=== PATIENT | male | born 1995 | race Caucasian/White ===

== ENCOUNTER 2024-01-12 15:28 | Emergency (ER) | payer OTHER ==
[2024-01-12 16:56] VITALS: TEMP 98.2
--- NOTE | 2024-01-12 17:54 | ED ---
Fall HPI - General Source: patient, RN notes reviewed Mode of arrival: EMS <Rosie Byrd - Last Filed: 01/12/24 17:54> <Bao Lujan - Last Filed: 01/12/24 21:19> - General Chief Complaint: Fall Time Seen by Provider: 01/12/24 15:40 - History of Present Illness Initial Comments: This is a 28-year-old male presents the emergency department via EMS from [facility] chief complaint of a fall. Patient states that he was in the waiting room of [facility] pending to be admitted when he fell asleep at the chair something and falling onto the ground striking his head. Patient states that EMS was called for evaluation of a head injury. Currently he is denying any headaches, pain, dizziness, lightheadedness, change in vision. States that his last use of fentanyl was at 0200. At that he is on Suboxone. No other acute complaints at this time. (Rosie Byrd) - Related Data Allergies Allergy/AdvReac Type Severity Reaction Status Date / Time No Known Allergies Allergy Verified 01/12/24 16:56 Review of Systems ROS Other: All systems not noted in ROS Statement are negative. <Rosie Byrd - Last Filed: 01/12/24 17:54> ROS Other: All systems not noted in ROS Statement are negative. <Bao Lujan - Last Filed: 01/12/24 21:19> ROS Statement: Those systems with pertinent positive or pertinent negative responses have been documented in the HPI. Past Medical History Past Medical History: No Reported History History of Any Multi-Drug Resistant Organisms: None Reported Past Surgical History: No Surgical Hx Reported Additional Past Surgical History / Comment(s): spinal fusions, plates in collar bone, humerus plate, forearm in left arm. Past Psychological History: ADD/ADHD, Depression Smoking Status: Current every day smoker Past Alcohol Use History: None Reported Past Drug Use History: Cocaine, Heroin, IV Drug Use, Marijuana, Methamphetamine, Opiates, Prescription Drug Abuse <Rosie Byrd - Last Filed: 01/12/24 17:54> General Exam Limitations: no limitations <Rosie Byrd - Last Filed: 01/12/24 17:54> Course Vital Signs 01/12/24 16:50 Temperature 98.2 F Pulse Rate 88 Respiratory 16 Rate Blood Pressure 120/82 O2 Sat by Pulse 98 Oximetry Medical Decision Making <Rosie Byrd - Last Filed: 01/12/24 17:54> - Lab Data Result diagrams: 01/12/24 19:25 01/12/24 19:25 <LeBao - Last Filed: 01/12/24 21:19> - Medical Decision Making Was pt. sent in by a medical professional or institution (, ANDREW, ACETALDEHYDE CONVERTER OPERATOR, urgent care, hospital, or retirement...) When possible be specific @ -[No] Did you speak to anyone other than the patient for history (EMS, parent, family, police, friend...)? What history was obtained from this source @ -[No] Did you review nursing and triage notes (agree or disagree)? Why? @ -[I reviewed and agree with nursing and triage notes] Were old charts reviewed (outside hosp., previous admission, EMS record, old EKG, old radiological studies, urgent care reports/EKG's, retirement records)? Report findings @ -[No old charts were reviewed] Differential Diagnosis (chest pain, altered mental status, abdominal pain women, abdominal pain men, vaginal bleeding, weakness, fever, dyspnea, syncope, headache, dizziness, GI bleed, back pain, seizure, CVA, palpatations, mental health, musculoskeletal)? @ -[not applicable] EKG interpreted by me (3pts min.). @ -[As above] X-rays interpreted by me (1pt min.). @ -[None done] CT interpreted by me (1pt min.). @ -[None done] U/S interpreted by me (1pt. min.). @ -[None done] What testing was considered but not performed or refused? (CT, X-rays, U/S, labs)? Why? @ -[None] What meds were considered but not given or refused? Why? @ -[None] Did you discuss the management of the patient with other professionals (professionals i.e. ANDREW Watson, ACETALDEHYDE CONVERTER OPERATOR, lab, RT, psych nurse, geriatric social worker, electronics engineering technologist, teacher, customer service security officer, director of casework department)? Give summary @ -[No] Was smoking cessation discussed for >3mins.? @ -[No] Was critical care preformed (if so, how long)? @ -[No] Were there social determinants of health that impacted care today? How? (Homelessness, low income, unemployed, alcoholism, drug addiction, transportation, low edu. Level, literacy, decrease access to med. care, penitentiary, rehab)? @ -[No] Was there de-escalation of care discussed even if they declined (Discuss DNR or withdrawal of care, Hospice)? DNR status @ -[No] What co-morbidities impacted this encounter? (DM, HTN, Smoking, COPD, CAD, Cancer, CVA, ARF, Chemo, Hep., AIDS, mental health diagnosis, sleep apnea, morbid obesity)? @ -[None] Was patient admitted / discharged? Hospital course, mention meds given and route, prescriptions, significant lab abnormalities, going to OR and other pertinent info. @ -[hospital course] Undiagnosed new problem with uncertain prognosis? @ -[No] Drug Therapy requiring intensive monitoring for toxicity (Heparin, Nitro, Insulin, Cardizem)? @ -[No] Were any procedures done? @ -[No] Diagnosis/symptom? @ -[default] Acute, or Chronic, or Acute on Chronic? @ -[default] Uncomplicated (without systemic symptoms) or Complicated (systemic symptoms)? @ -[default] Side effects of treatment? @ -[No] Exacerbation, Progression, or Severe Exacerbation? @ -[No] Poses a threat to life or bodily function? How? (Chest pain, [place], [place], pneumonia, PE, COPD, DKA, ARF, appy, cholecystitis, CVA, Diverticulitis, Homicidal, Suicidal, threat to staff... and all critical care pts) @ -[No] (Rosie Byrd) 28-year-old male signed out to me pending laboratory studies. Patient states that he fell asleep while in the waiting room at [facility] and staff became worried as he thought that he hit his head. Patient denies this. He has no current complaints. Denies headache. Patient not on blood thinners. Denies any other injury at this time. On exam, no midline spinal tenderness to palpation. Head exam atraumatic normocephalic with no evidence of head injury. Full active range of motion of bilateral upper lower extremities. Radial pulses, DP/PT pulses intact bilaterally. Ambulates without difficulty. Laboratory studies reviewed and are largely unremarkable. Discharged in able condition. Discussed return precautions with patient who verbalized agreement. (Bao Lujan) - Lab Data Lab Results 01/12/24 01/12/24 01/12/24 Range/Units 19:25 19:25 19:25 WBC 6.5 (3.8-10.6) k/uL RBC 4.18 L (4.30-5.90) m/uL Hgb 12.8 L (13.0-17.5) gm/dL Hct 37.8 L (39.0-53.0) % MCV 90.6 (80.0-100.0) fL MCH 30.7 (25.0-35.0) pg MCHC 33.8 (31.0-37.0) g/dL RDW 13.5 (11.5-15.5) % Plt Count 183 (150-450) k/uL MPV 7.2 Neutrophils % (Manual) 48 % Lymphocytes % (Manual) 37 % Monocytes % (Manual) 12 % Eosinophils % (Manual) 3 % Neutrophils # (Manual) 3.12 (1.3-7.7) k/uL Lymphocytes # (Manual) 2.41 (1.0-4.8) k/uL Monocytes # (Manual) 0.78 (0-1.0) k/uL Eosinophils # (Manual) 0.20 (0-0.7) k/uL Nucleated RBCs 0 (0-0) /100 WBC Manual Slide Review Performed Sodium 137 (137-145) mmol/L Potassium 4.0 (3.5-5.1) mmol/L Chloride 105 (98-107) mmol/L Carbon Dioxide 29 (22-30) mmol/L Anion Gap 3 mmol/L BUN 13 (9-20) mg/dL Creatinine 0.79 (0.66-1.25) mg/dL Est GFR (CKD-EPI)AfAm >90 (>60 ml/min/1.73 sqM) Est GFR (CKD-EPI)NonAf >90 (>60 ml/min/1.73 sqM) Glucose 80 (74-99) mg/dL Calcium 8.9 (8.4-10.2) mg/dL Total Bilirubin 0.5 (0.2-1.3) mg/dL AST 52 (17-59) U/L ALT 24 (4-49) U/L Alkaline Phosphatase 64 (38-126) U/L Total Protein 6.9 (6.3-8.2) g/dL Albumin 4.3 (3.5-5.0) g/dL Urine Opiates Screen Detected H (NotDetected) Ur Oxycodone Screen Not Detected (NotDetected) Urine Methadone Screen Not Detected (NotDetected) Ur Barbiturates Screen Not Detected (NotDetected) U Tricyclic Antidepress Not Detected (NotDetected) Ur Phencyclidine Scrn Not Detected (NotDetected) Ur Amphetamines Screen Not Detected (NotDetected) U Methamphetamines Scrn Not Detected (NotDetected) U Benzodiazepines Scrn Not Detected (NotDetected) Urine Cocaine Screen Detected H (NotDetected) U Marijuana (THC) Screen Detected H (NotDetected) Disposition Is patient prescribed a controlled substance at d/c from ED?: No Time of Disposition: 17:53 <Rosie Byrd - Last Filed: 01/12/24 17:54> Is patient prescribed a controlled substance at d/c from ED?: No Time of Disposition: 21:19 <Bao Lujan - Last Filed: 01/12/24 21:19> Clinical Impression: Fall, Concern of healthcare provider about possible non-accidental traumatic injury Disposition: HOME SELF-CARE Condition: Poor Instructions (If sedation given, give patient instructions): Fall Prevention (ED) Additional Instructions: Return to the emergency department if symptoms worsen or do not improve. Referrals: Nonstaff,Physician [Primary Care Provider] - 1-2 days
[2024-01-12] MEDS: SODIUM CHLORIDE 0.9% 1,000 ML IV STA (19:37)
[2024-01-12 19:56] LABS: Amphetamine Screen,Urine Not Detected (NotDetected); Barbiturate Screen,Urine Not Detected (NotDetected); Benzodiazepines Screen,Urine Not Detected (NotDetected); Cocaine Screen,Urine Detected (NotDetected); Methadone Screen, Urine Not Detected (NotDetected); Opiate Screen,Urine Detected (NotDetected); Oxycodone Screen, Urine Not Detected (NotDetected); Phencyclidine Screen,Urine Not Detected (NotDetected); Tricyclic Antidepressant,Urine Not Detected (NotDetected); Urn Cannabinoid Scrn Detected (NotDetected)
[2024-01-12 20:08] LABS: ALT 24 U/L (4-49); AST 52 U/L (17-59); African American GFR (CKD) >90 (>60 ml/min/1.73 sqM); Albumin 4.3 g/dL (3.5-5.0); Alkaline Phosphatase 64 U/L (38-126); Anion Gap 3 mmol/L; Blood Urea Nitrogen 13 mg/dL (9-20); Calcium 8.9 mg/dL (8.4-10.2); Carbon Dioxide 29 mmol/L (22-30); Chloride 105 mmol/L (98-107); Glucose 80 mg/dL (74-99); Non-African American GFR(CKD) >90 (>60 ml/min/1.73 sqM); Sodium 137 mmol/L (137-145); Total Bilirubin 0.5 mg/dL (0.2-1.3); Total Protein 6.9 g/dL (6.3-8.2)
[2024-01-12 20:15] LABS: HCT 37.8 % (39.0-53.0); HGB 12.8 gm/dL (13.0-17.5); MCH 30.7 pg (25.0-35.0); MCHC 33.8 g/dL (31.0-37.0); MCV 90.6 fL (80.0-100.0); Mean Platelet Volume 7.2; Platelet Count 183 k/uL (150-450); RBC 4.18 m/uL (4.30-5.90); RDW 13.5 % (11.5-15.5); WBC 6.5 k/uL (3.8-10.6)
[2024-01-12 20:44] LABS: Lymphocytes # (M) 2.41 k/uL (1.0-4.8); Monocytes # (M) 0.78 k/uL (0-1.0); Neutrophils # (M) 3.12 k/uL (1.3-7.7); Neutrophils % (M) 48 %; Nucleated Red Blood Cells 0 /100 WBC (0-0); Total Cells Counted 100
[2024-01-12 21:59] VITALS: BP 113/58; PULSE 58; RESP 18
== END 2024-01-12 21:57 | disposition home or self-care (01) ==
LOC: EC 15:28
DX: S09.90XA Unspecified injury of head, initial encounter (principal); F17.200 Nicotine dependence, unspecified, uncomplicated; W18.30XA Fall on same level, unspecified, initial encounter
CPT/HCPCS: 36415; 80053; 80306; 85025; 93005; 96360; 99283

== ENCOUNTER 2024-01-19 11:23 | Emergency (ER) | payer OTHER ==
[2024-01-19 11:30] VITALS: TEMP 98.3
--- NOTE | 2024-01-19 11:43 | ED ---
General Adult HPI - General Chief complaint: Abdominal Pain Stated complaint: Abd Pain Time Seen by Provider: 01/19/24 11:24 Source: patient, EMS, RN notes reviewed Mode of arrival: EMS Limitations: no limitations - History of Present Illness Initial comments: Patient is a 28-year-old male present to the emergency department with concerns for gallbladder problems. Patient does have history of this previously and has had previous ultrasound. Patient states his symptoms have been bothering him for the past 3 days. Patient currently is at [facility] for detox from fentanyl use. Patient admits to injecting. Patient has abdominal discomfort, mostly right upper abdomen with associated nausea and vomiting. No radiation of pain. No fever. - Related Data Home Medications Medication Instructions Recorded Confirmed Acetaminophen Tab [Tylenol] 650 mg PO Q4H 01/19/24 01/19/24 Buprenorphine/Naloxone 8Mg/2Mg 1 film SL BID 01/19/24 01/19/24 [Suboxone 8-2Mg Film] Chlorpheniramine Maleate 4 mg PO Q4H PRN 01/19/24 01/19/24 [Chlor-Trimeton] Dextromethorphan HBr/Bupropion 1 tab PO DAILY 01/19/24 01/19/24 [Auvelity ER 45-105 mg Tablet] Escitalopram [Lexapro] 20 mg PO DAILY 01/19/24 01/19/24 Hyoscyamine Sulfate [Levsin] 0.125 mg PO QID PRN 01/19/24 01/19/24 Ibuprofen [Motrin Ib] 600 mg PO Q6H PRN 01/19/24 01/19/24 Loperamide HCl [Imodium A-D] 4 mg PO QID PRN 01/19/24 01/19/24 Mag Hydrox/Aluminum Hyd/Simeth 30 ml PO Q4H PRN 01/19/24 01/19/24 [Mylanta Maximum Strength Liq] Mirtazapine [Remeron] 15 mg PO HS 01/19/24 01/19/24 Nicotine 14Mg/24Hr Patch [Habitrol 1 patch TRANSDERM DAILY 01/19/24 01/19/24 14Mg/24Hr Patch] OLANZapine [ZyPREXA] 5 mg PO HS 01/19/24 01/19/24 Prazosin [Minipress] 1 mg PO HS 01/19/24 01/19/24 Zofran 2ml (4mg) 4 mg IM Q6H PRN 01/19/24 01/19/24 ondansetron HCL [Ondansetron HCl] 8 mg PO Q6H PRN 01/19/24 01/19/24 Allergies Allergy/AdvReac Type Severity Reaction Status Date / Time No Known Allergies Allergy Verified 01/19/24 11:29 Review of Systems ROS Statement: Those systems with pertinent positive or pertinent negative responses have been documented in the HPI. ROS Other: All systems not noted in ROS Statement are negative. Constitutional: Denies: fever, chills Eyes: Denies: eye pain ENT: Denies: ear pain Respiratory: Denies: cough Cardiovascular: Denies: chest pain Endocrine: Denies: fatigue Gastrointestinal: Reports: as per HPI, abdominal pain, nausea, vomiting, diarrhea (Patient did have an episode of diarrhea) Past Medical History Past Medical History: No Reported History History of Any Multi-Drug Resistant Organisms: None Reported Past Surgical History: No Surgical Hx Reported Additional Past Surgical History / Comment(s): spinal fusions, plates in collar bone, humerus plate, forearm in left arm. Past Psychological History: ADD/ADHD, Depression Smoking Status: Current every day smoker Past Alcohol Use History: None Reported Past Drug Use History: Cocaine, Heroin, IV Drug Use, Marijuana, Methamphetamine, Opiates, Prescription Drug Abuse General Exam Limitations: no limitations General appearance: alert, in no apparent distress Head exam: Present: normocephalic Eye exam: Present: normal appearance Neck exam: Present: normal inspection Respiratory exam: Present: normal lung sounds bilaterally Cardiovascular Exam: Present: regular rate, normal rhythm GI/Abdominal exam: Present: soft, tenderness (Mild diffuse tenderness, more so right upper quadrant where it is moderate), normal bowel sounds. Absent: distended, guarding, rebound, rigid, pulsatile mass Extremities exam: Present: normal inspection Neurological exam: Present: alert Psychiatric exam: Present: normal affect, normal mood Skin exam: Present: normal color Course Vital Signs 01/19/24 01/19/24 11:26 14:46 Temperature 98.3 F Pulse Rate 56 L 67 Respiratory 18 18 Rate Blood Pressure 134/80 125/83 O2 Sat by Pulse 100 97 Oximetry Medical Decision Making - Medical Decision Making Was pt. sent in by a medical professional or institution (, PA, LOOM BLOWER, urgent care, hospital, or skilled nursing...) When possible be specific @ -Patient was sent in from [facility] Did you speak to anyone other than the patient for history (EMS, parent, family, police, friend...)? What history was obtained from this source @ -No Did you review nursing and triage notes (agree or disagree)? Why? @ -I reviewed and agree with nursing and triage notes Were old charts reviewed (outside hosp., previous admission, EMS record, old EKG, old radiological studies, urgent care reports/EKG's, skilled nursing records)? Report findings @ -No old charts were reviewed Differential Diagnosis (chest pain, altered mental status, abdominal pain women, abdominal pain men, vaginal bleeding, weakness, fever, dyspnea, syncope, headache, dizziness, GI bleed, back pain, seizure, CVA, palpatations, mental health, musculoskeletal)? @ -Differential Abdominal Pain Men: Appendicitis, cholecystitis, diverticulosis, ischemic bowel, pancreatitis, hepatitis, UTI, gastroenteritis, AAA, incarcerated hernia, bowel obstruction, constipation, inflammatory bowel, hepatitis, peptic ulcer disease, splenic infarction, perforated viscus, testicular torsion, this is not meant to be an all-inclusive list EKG interpreted by me (3pts min.). @ -As above X-rays interpreted by me (1pt min.). @ -Abdominal x-ray shows no acute process CT interpreted by me (1pt min.). @ -CT scan abdomen pelvis does not reveal acute abnormality. There is mild prominence right renal collecting system U/S interpreted by me (1pt. min.). @ -Ultrasound gallbladder shows borderline common bile duct size. What testing was considered but not performed or refused? (CT, X-rays, U/S, labs)? Why? @ -None What meds were considered but not given or refused? Why? @ -None Did you discuss the management of the patient with other professionals (professionals i.e. , PA, LOOM BLOWER, lab, RT, psych nurse, social work instructor, facilities flight check pilot, teacher, protection officer, therapeutic case manager)? Give summary @ -No Was smoking cessation discussed for >3mins.? @ -No Was critical care preformed (if so, how long)? @ -No Were there social determinants of health that impacted care today? How? (Homelessness, low income, unemployed, alcoholism, drug addiction, transportation, low edu. Level, literacy, decrease access to med. care, senior living, rehab)? @ -No Was there de-escalation of care discussed even if they declined (Discuss DNR or withdrawal of care, Hospice)? DNR status @ -No What co-morbidities impacted this encounter? (DM, HTN, Smoking, COPD, CAD, Cancer, CVA, ARF, Chemo, Hep., AIDS, mental health diagnosis, sleep apnea, morbid obesity)? @ -None Was patient admitted / discharged? Hospital course, mention meds given and route, prescriptions, significant lab abnormalities, going to OR and other pertinent info. @ -Patient reevaluated and feeling much better following medications. Patient is comfortable with discharge home. Patient is updated on results Undiagnosed new problem with uncertain prognosis? @ -No Drug Therapy requiring intensive monitoring for toxicity (Heparin, Nitro, Insul in, Cardizem)? @ -No Were any procedures done? @ -No Diagnosis/symptom? @ -Abdominal pain Acute, or Chronic, or Acute on Chronic? @ -Acute Uncomplicated (without systemic symptoms) or Complicated (systemic symptoms)? @ -Default Side effects of treatment? @ -No Exacerbation, Progression, or Severe Exacerbation? @ -No Poses a threat to life or bodily function? How? (Chest pain, [place], [place], pneumonia, PE, COPD, DKA, ARF, appy, cholecystitis, CVA, Diverticulitis, Homicidal, Suicidal, threat to staff... and all critical care pts) @ -No - Lab Data Result diagrams: 01/19/24 11:42 01/19/24 11:43 Lab Results 01/19/24 01/19/24 01/19/24 Range/Units 11:42 11:42 11:43 WBC 10.5 (3.8-10.6) k/uL RBC 4.99 (4.30-5.90) m/uL Hgb 15.2 (13.0-17.5) gm/dL Hct 43.7 (39.0-53.0) % MCV 87.7 (80.0-100.0) fL MCH 30.4 (25.0-35.0) pg MCHC 34.7 (31.0-37.0) g/dL RDW 13.8 (11.5-15.5) % Plt Count 461 H D (150-450) k/uL MPV 7.0 Neutrophils % 76 % Lymphocytes % 16 % Monocytes % 6 % Eosinophils % 0 % Basophils % 0 % Neutrophils # 8.0 H (1.3-7.7) k/uL Lymphocytes # 1.6 (1.0-4.8) k/uL Monocytes # 0.7 (0-1.0) k/uL Eosinophils # 0.0 (0-0.7) k/uL Basophils # 0.0 (0-0.2) k/uL PT 11.8 (10.0-12.5) sec INR 1.1 (<1.2) APTT 25.6 (22.0-30.0) sec Sodium 134 L (137-145) mmol/L Potassium 3.7 (3.5-5.1) mmol/L Chloride 102 (98-107) mmol/L Carbon Dioxide 22 (22-30) mmol/L Anion Gap 10 mmol/L BUN 10 (9-20) mg/dL Creatinine 0.80 (0.66-1.25) mg/dL Est GFR (CKD-EPI)AfAm >90 (>60 ml/min/1.73 sqM) Est GFR (CKD-EPI)NonAf >90 (>60 ml/min/1.73 sqM) Glucose 102 H (74-99) mg/dL Calcium 9.4 (8.4-10.2) mg/dL Total Bilirubin 0.8 (0.2-1.3) mg/dL AST 19 (17-59) U/L ALT 15 (4-49) U/L Alkaline Phosphatase 66 (38-126) U/L Total Protein 7.5 (6.3-8.2) g/dL Albumin 4.7 (3.5-5.0) g/dL Amylase 56 (30-110) U/L Lipase 60 (23-300) U/L Disposition Clinical Impression: Abdominal pain Disposition: HOME SELF-CARE Condition: Stable Instructions (If sedation given, give patient instructions): Abdominal Pain (ED) Additional Instructions: Please do follow-up with primary care physician in the next couple of days for recheck. Please also follow-up with surgeon this week. Return for fever, increased pain, vomiting, not tolerating fluids, worsening symptoms or other concerns. Is patient prescribed a controlled substance at d/c from ED?: No Referrals: Michael Mabry MD [STAFF PHYSICIAN] - 1-2 days Marvin Cervantes MD [STAFF PHYSICIAN] - 1-2 days Time of Disposition: 15:14
[2024-01-19] MEDS: ONDANSETRON 4 MG/2 ML VIAL IVP STA (11:53)
[2024-01-19] MEDS: KETOROLAC 15 MG/ML 1 ML VIAL IVP STA (11:53)
[2024-01-19] MEDS: FAMOTIDINE 20 MG/2 ML VIAL IV STA (11:53)
[2024-01-19] MEDS: SODIUM CHLORIDE 0.9% 1,000 ML IV STA ×2 (11:54→14:45)
--- NOTE | 2024-01-19 12:06 | XR ---
EXAMINATION TYPE: XR KUB DATE OF EXAM: 01/19/2024 COMPARISON: NONE HISTORY: Pain TECHNIQUE: One view abdominal series FINDINGS: The osseous structures are intact. Postoperative changes of the lumbar spine. Bilateral mild hip arth ropathy. There is deformity of the right pubic rami and right iliac bone suggestive of prior trauma. Suspected chronic compression deformity of L3. The bowel gas pattern is nonspecific. Lung bases are c lear. IMPRESSION: 1. Nonspecific abdomen. No diagnostic evidence of obstruction.
[2024-01-19 12:21] LABS: Basophils % (A) 0 %; Eosinophils % (A) 0 %; HCT 43.7 % (39.0-53.0); HGB 15.2 gm/dL (13.0-17.5); Lymphocytes # (A) 1.6 k/uL (1.0-4.8); Lymphocytes % (A) 16 %; MCH 30.4 pg (25.0-35.0); MCHC 34.7 g/dL (31.0-37.0); MCV 87.7 fL (80.0-100.0); Monocytes # (A) 0.7 k/uL (0-1.0); Monocytes % (A) 6 %; Neutrophils % (A) 76 %; RBC 4.99 m/uL (4.30-5.90); RDW 13.8 % (11.5-15.5); WBC 10.5 k/uL (3.8-10.6)
[2024-01-19 12:30] LABS: INR 1.1 (<1.2); Partial Thromboplastin Time 25.6 sec (22.0-30.0); Prothrombin Time 11.8 sec (10.0-12.5)
[2024-01-19 12:31] LABS: ALT 15 U/L (4-49); AST 19 U/L (17-59); African American GFR (CKD) >90 (>60 ml/min/1.73 sqM); Albumin 4.7 g/dL (3.5-5.0); Alkaline Phosphatase 66 U/L (38-126); Amylase 56 U/L (30-110); Anion Gap 10 mmol/L; Blood Urea Nitrogen 10 mg/dL (9-20); Calcium 9.4 mg/dL (8.4-10.2); Carbon Dioxide 22 mmol/L (22-30); Chloride 102 mmol/L (98-107); Glucose 102 mg/dL (74-99); Lipase 60 U/L (23-300); Non-African American GFR(CKD) >90 (>60 ml/min/1.73 sqM); Potassium 3.7 mmol/L (3.5-5.1); Sodium 134 mmol/L (137-145); Total Bilirubin 0.8 mg/dL (0.2-1.3); Total Protein 7.5 g/dL (6.3-8.2)
[2024-01-19 12:40] LABS: Platelet Count 461 k/uL (150-450)
--- NOTE | 2024-01-19 12:40 | US ---
EXAMINATION TYPE: US gallbladder DATE OF EXAM: 01/19/2024 COMPARISON: EXAMINATION TYPE: US gallbladder DATE OF EXAM: 01/19/2024 COMPARISON: NONE CLINICAL INDICATION: Male, 28 years old with history of pain; RUQ pain; N/V TECHNIQUE: Multiple sonographic images of the right upper quadrant are obtained. FINDINGS: EXAM MEASUREMENTS: Liver Length: 18.9 cm Gallbladder Wall: 0.1 cm CBD: 0.6 cm Right Kidney: 10.0 x 3.9 x 5.5 cm ENERGY ATTORNEY NOTES:Patient shaking and moving entire exam, limiting images Pancreas: wnl Liver: Hepatomegaly Gallbladder: Appears wnl Evidence for sonographic Ramires's sign: No CBD: Dilated Right Kidney: wnl IMPRESSION: 1. Hepatomegaly correlate for underlying hepatocellular disease. 2. The common bile duct is slightly dilated for the patient's age group. Distal CBD stone or sludge i s not excluded. Consider follow-up MRCP or ERCP as clinically warranted.
[2024-01-19] MEDS: ACETAMINOPHEN IV (For NPO) 1,000 MG in EMPTY BAG 1 BAG IVPB STA (14:45)
[2024-01-19] MEDS: PANTOPRAZOLE 40 MG/10 ML VIAL IVP STA (14:46)
--- NOTE | 2024-01-19 14:50 | CT ---
EXAMINATION TYPE: CT abdomen pelvis w con CT DLP: 867.3 mGycm, Automated exposure control for dose reduction was used. DATE OF EXAM: 01/19/2024 2:22 PM COMPARISON: Ultrasound 01/19/2024 CLINICAL INDICATION:Male, 28 years old with history of ruq abp, focus GB and CBD; ruq abp, focus GB a nd CBD TECHNIQUE: Axial CT abdomen pelvis w con;Sagittal and coronal reformats were created on a separate w orkstation. Contrast used:100ml mL of Isovue 300 with IV Contrast, (none if empty) Oral contrast used: without Oral Contrast (none if empty) FINDINGS: LOWER CHEST: Unremarkable ABDOMEN LIVER: Focal fatty infiltration adjacent to the falciform ligament in segment IVb GALLBLADDER AND BILE DUCTS: Gallbladder is nondistended No evidence for coronary lithiasis. No intrah epatic or extrahepatic dilation. No choledocholithiasis definitively visualized. PANCREAS: Unremarkable. SPLEEN: Unremarkable. ADRENAL GLANDS: Unremarkable. KIDNEYS AND URETERS: Mild dilation of the right collecting system compared to left. No evidence of hy dronephrosis or renal calculus. The ureters are unremarkable. PELVIS BLADDER: Unremarkable REPRODUCTIVE: Unremarkable. ABDOMEN & PELVIS STOMACH AND BOWEL: No evidence of bowel obstruction. PERITONEUM/RETROPERITONEUM: No evidence of pneumoperitoneum or free fluid. VASCULATURE: No evidence of aortic aneurysm. MUSCULOSKELETAL: No acute osseous abnormalities, remote right inferior pubis ramus and superior pubic ramus fractures. Fixation hardware in the spine appears intact. LYMPH NODES: No gross evidence for lymphadenopathy. SOFT TISSUE/ABDOMINAL WALL: Fat-containing umbilical hernia. IMPRESSION: 1. No evidence for right upper quadrant process to explain the patient's pain the gallbladder is wit hin normal limits without evidence of wall thickening, pericholecystic fluid or cholelithiasis. 2. Mild dilation of the right renal collecting system. No obstructive calculus definitively visualiz ed. Correlate for recently passed stone.
[2024-01-19 15:48] VITALS: BP 123/77; PULSE 90; RESP 16
== END 2024-01-19 16:05 | disposition home or self-care (01) ==
LOC: EC 11:23
DX: R10.11 Right upper quadrant pain (principal); F17.200 Nicotine dependence, unspecified, uncomplicated; F12.90 Cannabis use, unspecified, uncomplicated; F15.90 Other stimulant use, unspecified, uncomplicated; F19.90 Other psychoactive substance use, unspecified, uncomplicated
CPT/HCPCS: 36415; 80053; 82150; 83690; 85025; 85610; 85730; 74018; 76705; 74177; 99285; 96365; 96375; 96361; J2405; J3490; J0131; J1885; C9113; Q9967